=== PATIENT | male | born 1940 | race Caucasian/White ===

== ENCOUNTER 2019-04-29 11:01 | Emergency (ER) | payer MEDICARE ==
[~2019-04-29] VITALS: Ht 182.9 cm; Wt 95.2 kg
[~2019-04-29 11:01] MED LIST: ASPI325 PO; Antivert25 MG PO; CLOP75 PO; GLUC500; L-Lysine500 M1 PO; LOVA20 PO; MAGOXI400 PO; TOCO400; Zofran Odt4 MG SL
[2019-04-29 11:48] LABS: BASOPHILS ABSOLUTE AUTO 0.04 K/mm3 (0.00-0.23); BASOPHILS PERCENT AUTO 1 % (0-2); EOSINOPHILS ABSOLUTE AUTO 0.13 K/mm3 (0.00-0.68); EOSINOPHILS PERCENT AUTO 2 % (0-6); Hematocrit 42.2 % (37.0-53.0); Hemoglobin 13.7 g/dL (13.5-17.5); IMMATURE GRAN ABSOLUTE AUTO 0.01 K/mm3 (0.00-0.10); IMMATURE GRAN PERCENT AUTO 0 % (0-1); LYMPHOCYTES ABSOLUTE AUTO 2.23 K/mm3 (0.84-5.20); LYMPHOCYTES PERCENT AUTO 35 % (21-46); MONOCYTES ABSOLUTE AUTO 0.48 K/mm3 (0.16-1.47); MONOCYTES PERCENT AUTO 7 % (4-13); Mean Corpuscular HGB 25.5 pg (26.0-34.0); Mean Corpuscular HGB Conc 32.5 g/dL (31.5-36.5); Mean Corpuscular Volume 79 fL (80-100); Mean Platelet Volume 9.6 fL (9.1-12.4); NEUTROPHILS ABSOLUTE AUTO 3.58 K/mm3 (1.96-9.15); NEUTROPHILS PERCENT AUTO 55 % (41-73); Platelet Count 240 K/mm3 (150-400); RDW Coefficient Variation 14.2 % (11.7-14.2); RDW Standard Deviation 40.1 fL (35.1-46.3); Red Blood Cell Count 5.37 M/mm3 (4.30-5.90); White Blood Cell Count 6.47 K/mm3 (4.00-11.30)
[2019-04-29 12:07] LABS: Alanine Aminotransfer (ALT/SGP 46 U/L (12-78); Albumin, Blood 4.1 g/dL (3.4-5.0); Albumin/Globulin Ratio 1.2 (0.8-1.8); Alk Phos 72 U/L (50-136); Anion Gap 8 mmol/L (6-16); Aspartate Aminotrans (AST/SGOT 53 U/L (12-37); Bilirubin, Total 0.4 mg/dL (0.1-1.0); Blood Urea Nitrogen 19 mg/dL (8-24); Bun/Creatinine Ratio 19.4 (12.0-20.0); CO2, Blood 25 mmol/L (21-32); Calcium, Blood 8.9 mg/dL (8.5-10.1); Chloride, Blood 105 mmol/L (98-108); Creatinine, Blood 0.98 mg/dL (0.60-1.20); Globulin, Blood 3.5 g/dL (2.2-4.0); Glomerular Filtration Rate >60 (60-); Glucose, Blood 137 mg/dL (70-99); Potassium, Blood 4.2 mmol/L (3.5-5.5); Sodium, Blood 138 mmol/L (136-145); Total Protein, Blood 7.6 g/dL (6.4-8.2)
[2019-04-29 12:16] LABS: Source, Urine Clean Catch
[2019-04-29 12:29] LABS: Bilirubin, Urine Neg (Neg); Blood, Urine Neg (Neg); Glucose Qualitative, Urine Neg (Neg); Ketones, Urine Neg (Neg); Leukocyte Esterase, Urine Neg (Neg); Nitrite, Urine Neg (Neg); Protein, Urine Neg (Neg); Specific Gravity, Urine 1.005 (1.003-1.022); Urobilinogen, Urine NORM (Normal)
[2019-04-29 12:39] LABS: Appearance, Urine Clear (Clear); Color, Urine Yellow (P-Yellow)
[2019-04-29] MEDS ORDERED: MOTION RELIEF25 MG PO (14:11)
== END 2019-04-29 14:30 | disposition home or self-care (01) ==
LOC: ER 11:01
PROVIDERS: Emergency Medicine
DX: E87.8 Other disorders of electrolyte and fluid balance, not elsewhere classified (principal); E78.5 Hyperlipidemia, unspecified; Z86.73 Personal history of transient ischemic attack (TIA), and cerebral infarction without residual deficits; Z79.899 Other long term (current) drug therapy
CPT/HCPCS: 36415; 70450; 80053; 81003; 85025; 93005; 93010; 99284-25

== ENCOUNTER → 2021-02-06 | Outpatient (CLI) | payer MEDICARE ==
[~2021-02-06] MED LIST changes: +MOTION RELIEF25 MG PO
== END | disposition home or self-care (01) ==
LOC: LAB 11:01 → LAB SHORT 11:01
DX: C44.111 Basal cell carcinoma of skin of unspecified eyelid, including canthus (principal); L57.0 Actinic keratosis
CPT/HCPCS: 88305

== ENCOUNTER 2021-04-03 08:40 | Day surgery (SDC) | payer MEDICARE ==
[~2021-04-03] VITALS: Ht 182.9 cm; Wt 91.1 kg
== END 2021-04-03 10:45 | disposition home or self-care (01) ==
LOC: ORSCSDS 08:40
PROVIDERS: Surgery
PROC: 0DJD8ZZ Inspection of Lower Intestinal Tract, Via Natural or Artificial Opening Endoscopic (ICD-10-PCS; principal; 2021-04-03 10:00)
DX: Z12.11 Encounter for screening for malignant neoplasm of colon (principal); Z86.010 Personal history of colon polyps; Z86.73 Personal history of transient ischemic attack (TIA), and cerebral infarction without residual deficits; E78.5 Hyperlipidemia, unspecified; Z87.891 Personal history of nicotine dependence; Z79.899 Other long term (current) drug therapy
CPT/HCPCS: J2704; J7120

== ENCOUNTER → 2022-03-18 | Outpatient (CLI) | payer MEDICARE | END | disposition home or self-care (01) | LOC: LAB SHORT 14:56 → PLD 14:56 | DX: D04.62 Carcinoma in situ of skin of left upper limb, including shoulder (principal) | CPT/HCPCS: 88305 ==

== ENCOUNTER → 2023-11-01 | Outpatient (CLI) | payer MEDICARE | END | disposition home or self-care (01) | LOC: LAB 10:42 → LAB SHORT 10:42 | PROVIDERS: Family Medicine | DX: Z51.81 Encounter for therapeutic drug level monitoring (principal); Z79.899 Other long term (current) drug therapy | CPT/HCPCS: G0480 ==

== ENCOUNTER → 2024-10-05 | Outpatient (CLI) | payer MEDICARE ==
[2024-10-05 20:20] LABS: Microalb/Creat Ratio UR, Rand 6.244 mg/g (0.000-30.000); Microalbumin, Random Urine 8.18 mg/L (0.000-20.000)
== END | disposition home or self-care (01) ==
LOC: LAB 17:47 → LAB SHORT 17:47
PROVIDERS: Family Medicine
DX: E11.65 Type 2 diabetes mellitus with hyperglycemia (principal); E11.69 Type 2 diabetes mellitus with other specified complication
CPT/HCPCS: 82043; 82570

== ENCOUNTER 2024-11-02 10:40 | Day surgery (SDC) | payer MEDICARE ==
[~2024-11-02] VITALS: Ht 182.9 cm; Wt 93.9 kg
[~2024-11-02 10:40] MED LIST changes: +Balanced Salt Epinephrine Irrigation Solution 500 mL IR SCH; +Lidocaine HCl/Pf 1% 5 ML VIAL XX SCH; +Moxifloxacin HCL 0.5 MG/0.1 ML 0.4MLSYR RIGHTEYE SCH; +PHENYLEPHRINE\\TROPICAMIDE\\TETRACAINE OPHTHALMIC DILATING SOLN RIGHTEYE PRN; +Povidone-Iodine 450 DROP/30 ML Solution ONE; +Povidone-Iodine 450 DROP/30 ML Solution RIGHTEYE SCH; +Tetracaine HCl/Pf 0.5% Opth Soln 4 ml ONE
[2024-11-02] MEDS ORDERED: Diazepam 2 MG Tab ONE (10:46)
--- NOTE | 2024-11-02 11:07 | NUR ---
11/02/24 1107 Sophie Mahan 1102: AXNIETY LEVEL 1103: 4 MG PO VALIUM GIVEN PER ORDERS
[2024-11-02] MEDS ORDERED: PROSTATE HEALT1 EAC1 (11:09)
[2024-11-02] MEDS ORDERED: VITAMIN B12500 MCG (11:09)
[2024-11-02] MEDS ORDERED: TRAM50 (11:10)
[2024-11-02] MEDS ORDERED: VITAMIN D3 (11:10)
[2024-11-02] MEDS ORDERED: Prinivil10 MG PO (11:10)
[2024-11-02] MEDS ORDERED: Vitamin C100 M1 (11:10)
[2024-11-02] MEDS ORDERED: GABA300 PO (11:11)
[2024-11-02] MEDS ORDERED: TERB250 PO (11:11)
[2024-11-02] MEDS ORDERED: MEMA5TAB PO (11:11)
[2024-11-02] MEDS ORDERED: DONEPEZIL HCL10 MG PO (11:12)
[2024-11-02] MEDS ORDERED: GAS X (11:12)
[2024-11-02 12:16] VITALS: BP 141/72
--- NOTE | 2024-11-02 12:46 | NUR ---
11/02/24 1246 JOSE HARPER BROUGHT BACK TO GO OVER DC INSTRUCTIONS. PT AMBULATED TO RESTROOM PRIOR TO DC
== END 2024-11-02 12:45 | disposition home or self-care (01) ==
LOC: ORSCSDS 10:40
PROVIDERS: Student in an Organized Health Care Education/Training Program
PROC: 08RJ3JZ Replacement of Right Lens with Synthetic Substitute, Percutaneous Approach (ICD-10-PCS; principal; 2024-11-02 12:00)
DX: H25.813 Combined forms of age-related cataract, bilateral (principal); H21.81 Floppy iris syndrome; I10 Essential (primary) hypertension; Z86.73 Personal history of transient ischemic attack (TIA), and cerebral infarction without residual deficits; H35.3132 Nonexudative age-related macular degeneration, bilateral, intermediate dry stage; F03.90 Unspecified dementia, unspecified severity, without behavioral disturbance, psychotic disturbance, mood disturbance, and anxiety; E78.5 Hyperlipidemia, unspecified; Z79.899 Other long term (current) drug therapy
CPT/HCPCS: A9270; V2632

== ENCOUNTER 2024-11-09 12:27 | Day surgery (SDC) | payer MEDICARE ==
[~2024-11-09] VITALS: Ht 182.9 cm; Wt 95.1 kg
[~2024-11-09 12:27] MED LIST changes: +DONEPEZIL HCL10 MG PO; +Diazepam 2 MG Tab PO PRN; +Diazepam 2 MG Tab PO SCH; +GABA300 PO; +GAS X; +MEMA5TAB PO; +Moxifloxacin HCL 0.5 MG/0.1 ML 0.4MLSYR LEFTEYE SCH; -Moxifloxacin HCL 0.5 MG/0.1 ML 0.4MLSYR RIGHTEYE SCH; +Ondansetron 4 MG SoluTab MM PRN; +PHENYLEPHRINE\\TROPICAMIDE\\TETRACAINE OPHTHALMIC DILATING SOLN LEFTEYE PRN; -PHENYLEPHRINE\\TROPICAMIDE\\TETRACAINE OPHTHALMIC DILATING SOLN RIGHTEYE PRN; +PROSTATE HEALT1 EAC1; +Povidone-Iodine 450 DROP/30 ML Solution LEFTEYE SCH; -Povidone-Iodine 450 DROP/30 ML Solution RIGHTEYE SCH; +Prinivil10 MG PO; +TERB250 PO; +TRAM50; +VITAMIN B12500 MCG; +VITAMIN D3; +Vitamin C100 M1
[2024-11-09] MEDS ORDERED: Diazepam 5 MG Tab ONE (12:33)
[2024-11-09] MEDS ORDERED: Diazepam 2 MG Tab ONE (12:33)
[2024-11-09 13:33] VITALS: BP 127/98
--- NOTE | 2024-11-09 13:41 | NUR ---
11/09/24 1340 Jimena Ruiz LEFT HEARING AID RETURNED TO PATIENT AND PLACED IN LEFT EAR. RIGHT HEARING AID ALREADY IN PLACE.
== END 2024-11-09 14:03 | disposition home or self-care (01) ==
LOC: ORSCSDS 12:27
PROVIDERS: Student in an Organized Health Care Education/Training Program
PROC: 08RK3JZ Replacement of Left Lens with Synthetic Substitute, Percutaneous Approach (ICD-10-PCS; principal; 2024-11-09 13:45)
DX: H25.12 Age-related nuclear cataract, left eye (principal); Z96.1 Presence of intraocular lens; H21.81 Floppy iris syndrome; I10 Essential (primary) hypertension; G47.33 Obstructive sleep apnea (adult) (pediatric); Z79.899 Other long term (current) drug therapy
CPT/HCPCS: A9270; V2632